=== PATIENT | female | born 1970 | race Caucasian/White ===

== ENCOUNTER 2018-08-24 14:30 | Observation (INO) | payer OTHER ==
[~2018-08-24] VITALS: Ht 170.2 cm; Wt 127.1 kg
[2018-08-24 18:42] LABS: BASOPHILS % 0.1 % (0.0-1.0); EOSINOPHILS % 0.1 % (0.0-6.0); HEMATOCRIT 35.9 % (34.2-44.1); HEMOGLOBIN 11.6 g/dL (12.0-16.0); LYMPHOCYTES # (AUTO) 2.5 (1.0-3.2); LYMPHOCYTES % 10.7 % (18.0-39.1); MEAN CORPUSCULAR HEMOGLOBIN 27.4 pg (28-32); MEAN CORPUSCULAR HGB CONC 32.3 g/dL (31-35); MEAN CORPUSCULAR VOLUME 84.9 fL (81-99); MONOCYTES # (AUTO) 0.7 (0.2-0.8); NEUTROPHILS # (AUTO) 19.5 (2.1-6.9); NEUTROPHILS % 85.5 % (38.7-80.0); PLATELET COUNT 286 x10e3/uL (140-360); RED BLOOD COUNT 4.23 x10e6/uL (3.6-5.1)
[2018-08-24 19:01] LABS: ALANINE AMINOTRANSFERASE 21 IU/L (0-55); ALBUMIN 3.9 g/dL (3.5-5.0); ALBUMIN/GLOBULIN RATIO 0.9 (0.8-2.0); ALKALINE PHOSPHATASE 86 IU/L (40-150); ANION GAP 15.4 mmol/L (8-16); BLOOD UREA NITROGEN 15 mg/dL (7-26); BUN/CREATININE RATIO 18 (6-25); CALCIUM 9.3 mg/dL (8.4-10.2); CARBON DIOXIDE 26 mmol/L (22-29); CHLORIDE 101 mmol/L (98-107); CREATININE, SERUM 0.84 mg/dL (0.57-1.11); EST GLOMERULAR FILTRATION RATE > 60 ML/MIN (60-); GLUCOSE 122 mg/dL (74-118); POTASSIUM 4.4 mmol/L (3.5-5.1); SODIUM 138 mmol/L (136-145)
[2018-08-24] MEDS ORDERED: DIATRIZOATE MEGL/DIATRIZOA SOD 30 ML BTL PO ONE (19:30)
[2018-08-24 21:17] LABS: BILIRUBIN,URINE NEGATIVE (NEGATIVE); CLARITY,URINE TURBID (CLEAR); COLOR,URINE YELLOW (YELLOW); KETONES,URINE NEGATIVE (NEGATIVE); LEUKOCYTE ESTERASE ,URINE NEGATIVE (NEGATIVE); NITRITE,URINE NEGATIVE (NEGATIVE); PROTEIN,URINE DIPSTICK NEGATIVE (NEGATIVE); URINE UROBILINOGEN 0.2 mg/dL (0.2 - 1)
[2018-08-24 21:28] LABS: AMORPHOUS SEDIMENT,URINE MANY (FEW); BACTERIA,URINE MANY /HPF
[2018-08-24] MEDS ORDERED: IOPAMIDOL 370 MG/ML 200 ML INFUS..BTL INJ ONE (22:00)
[2018-08-24] MEDS ORDERED: SODIUM CHLORIDE 0.9% 50ML 50 ML ONE (22:00)
[2018-08-24] MEDS ORDERED: SODIUM CHLORIDE 0.9% 1000ML 1,000 ML IV SCH (22:15)
--- NOTE | 2018-08-24 22:23 | Diagnostic Imaging Report ---
EXAM: CT Abdomen and Pelvis WITH contrast INDICATION: Lower abdominal pain, radiating to back. Emesis COMPARISON: None. TECHNIQUE: Abdomen and pelvis were scanned utilizing a multidetector helical scanner from the lung base to the pubic symphysis after administration of IV contrast. Coronal and sagittal reformations were obtained. Routine protocol was performed. Scan was performed when during portal venous phase. IV CONTRAST: 100 mL of Isovue-370 ORAL CONTRAST: Gastroview COMPLICATIONS: None RADIATION DOSE: Total DLP: 872.9 mGy*cm Estimated effective dose: (DLP x 0.015 x size factor) mSv CTDIvol has been reviewed. It is below the limits set by the Radiation Protocol Committee (RPC). FINDINGS: LINES and TUBES: None. LOWER THORAX: Unremarkable HEPATOBILIARY: No focal hepatic lesions. No biliary ductal dilation. GALLBLADDER: No radio-opaque stones or sludge. No wall thickening. SPLEEN: No splenomegaly. PANCREAS: No focal masses or ductal dilatation. ADRENALS: No adrenal nodules KIDNEYS/URETERS: A 0.6 x 1.9 cm structure in the right renal fossa likely represents a severely likely congenitally atrophic right kidney (coronal image 72). No hydronephrosis. No cystic or solid mass lesions. No stones. GI TRACT: Small hiatal hernia. No abnormal distention, wall thickening, or evidence of bowel obstruction. There are diverticula within the colon without evidence of diverticulitis. Appendix is normal. PELVIC ORGANS/BLADDER: A 4.9 x 4.4 cm structure in the posterior cul-de-sac (series 2 image 73) likely represents the right ovary. This appears asymmetrically prominent when compared to the left ovary which measures approximately 1.7 x 2.4 cm. LYMPH NODES: Minimally enlarged left common iliac 1.1 cm node (image 54) and right internal iliac 1.1 cm node (image 71). VESSELS: Unremarkable. PERITONEUM / RETROPERITONEUM: No free air or fluid. BONES: Unremarkable. SOFT TISSUES: Fat-containing 4.6 x 3.9 x 3.4 cm paraumbilical hernia with 1.7 cm neck. IMPRESSION: 1. Asymmetric prominence of the right ovary which may be secondary to an underlying lesion/cyst. Recommend further evaluation pelvic ultrasound. 2. Structure in the right renal fossa likely representing a severely likely congenitally atrophic right kidney. 3. Nonspecific minimally enlarged iliac lymph nodes. Signed by: DR. Mario Vasquez MD on 08/24/2018 10:19 PM
[2018-08-24] MEDS ORDERED: PIPER-TAZ 3.375 GM 50 ML IV ONE (22:30)
[2018-08-24] MEDS ORDERED: SODIUM CHLORIDE 0.9% 1000ML 1,000 ML IV ONE (22:30)
--- NOTE | 2018-08-25 00:38 | Diagnostic Imaging Report ---
EXAM: Transabdominal and Transvaginal Pelvic Ultrasound with Duplex INDICATION: Pelvic pain COMPARISON: Same day CT. TECHNIQUE: Grayscale transverse and sagittal transabdominal and transvaginal images were obtained of the pelvis. Transvaginal imaging was medically necessary to better evaluate the endometrium and the adnexa. The ovaries were examined with grayscale, color Doppler, and spectral waveform analysis. CLINICAL HISTORY: 48 year old A0; last menstrual period: 08/21/2017. FINDINGS: Uterus Orientation: Normal Size: 11 x 6.7 x 7.9 cm, mildly enlarged Mass: Left uterine intramural fibroid measuring 3.6 x 3.7 x 3.7 cm. Cervix: Normal Endometrium: Thickness: 2.6 cm, thickened. Appearance: Homogeneous echotexture without focal thickening. Small amount of free fluid in the endometrial cavity. Right ovary: Size: 6.6 x 3.2 x 4.6 cm Mass/Cyst: 3.9 x 2.2 x 4 cm complex cyst with crenulated margins, internal heterogeneity, and partial peripheral vascularity, likely corpus luteum. Vascularity: Normal venous and arterial color flow and waveforms. Left ovary: Size: 3.3 x 2.2 x 2.7 cm Mass/Cyst: None Vascularity: Normal venous and arterial color flow and waveforms. Adnexa: Normal Cul-de-sac: Mild free fluid IMPRESSION: 1. Arterial and venous flow is identified in both ovaries. Low likelihood of ovarian torsion. 2. Endometrial thickening, possibly clot given reported LMP of 4 days prior. Recommend correlation if patient currently menstruating and follow-up ultrasound in at least 4 weeks after completion of menstruation to document resolution. 3. Intramural 3.7 cm fibroid. 4. Right ovarian corpus luteum. Signed by: DR. Mario Vasquez MD on 08/25/2018 12:34 AM
[2018-08-25] MEDS ORDERED: ONDANSETRON HCL INJ 2 MG/ML VIAL IV PRN (01:30)
[2018-08-25] MEDS ORDERED: DEXTROSE 50% SYRINGE 50 ML IV PRN (01:30)
--- OUTSIDE RECORDS SUMMARY | 2018-08-25 01:44 | XMS REPORT ---
Author Author [facility] Address Unknown Phone Unavailable Care Team Providers Care Manager Culinary Name Role Phone Bryce DOTY Unavailable Unavailable Problems This patient has no known problems. Allergies, Adverse Reactions, Alerts This patient has no known allergies or adverse reactions. Medications This patient has no known medications. Results Test Description Test Time Test Comments Text Results Atomic Results Result Comments US TRANSVAGINAL 2018-08-25 00:27:00 [place] [address] Patient Name: NATALIE POTTER MR #: [id number] : 1970 Age/Sex: 48/F Req #: [id number] Adm Physician: Ordered by: JAIMIE SWANN MD Report #: [id number] Location: ER Room/Bed: Procedure: [id number] US/US TRANSVAGINAL Exam Date: Exam Time: REPORT STATUS: Signed EXAM: Transabdominal and Transvaginal Pelvic Ultrasound with Duplex INDICATION: Pelvic pain COMPARISON: Same day CT. TECHNIQUE: Grayscale transverse and sagittal transabdominal and transvaginal images were obtained of the pelvis. Transvaginal imaging was medically necessary to better evaluate the endometrium and the adnexa. The ovaries were examined with grayscale, color Doppler, and spectral waveform analysis. CLINICAL HISTORY: 48 year old A0; last menstrual period: 08/21/2017. FINDINGS: Uterus Orientation: Normal Size: 11 x 6.7 x 7.9 cm, mildly enlarged Mass: Left uterine intramural fibroid measuring 3.6 x 3.7 x 3.7 cm. Cervix: Normal Endometrium: Thickness: 2.6 cm, thickened. Appearance: Homogeneous echotexture without focal thickening. Small amount of free fluid in the endometrial cavity. Right ovary: Size: 6.6 x 3.2 x 4.6 cm Mass/Cyst: 3.9 x 2.2 x 4 cm complex cyst with crenulated margins, internal heterogeneity, and partial oscar pheral vascularity, likely corpus luteum. Vascularity: Normal venous and arterial color flow and waveforms. Left ovary: Size: 3.3 x 2.2 x 2.7 cm Mass/Cyst: None Vascularity: Normal venous and arterial color flow and waveforms. Adnexa: Normal Cul-de-sac: Mild free fluid IMPRESSION: 1. Arterial and venous flow is identified in both ovaries. Low likelihood of ovarian torsion. 2. Endometrial thickening, possibly clot given reported LMP of 4 days prior. Recommend correlation if patient currently menstruating and follow-up ultrasound in at least 4 weeks after completion of menstruation to document resolution. 3. Intramural 3.7 cm fibroid. 4. Right ovarian corpus luteum. Signed by: DR. Mario Larios MD on 08/25/2018 12:34 AM Dictated By: MARIO LARIOS MD Transcribed By: CHANI on 08/25/1833 COPY TO: JAIMIE SWANN MD CT ABDOMEN/PELVIS W 2018-08-24 22:05:00 [place] [address] Patient Name: NATALIE POTTER MR #: [id number] : 1970 Age/Sex: 48/F Req #: [id number] Adm Physician: Ordered by: NEHEMIAH PERALTA NP Report #: [id number] Location: ER Room/Bed: Procedure: [id number] CT/CT ABDOMEN/PELVIS W Exam Date: 08/24/18 Exam Time: 2144 REPORT STATUS: Signed EXAM: CT Abdomen and Pelvis WITH contrast INDICATI ON: Lower abdominal pain, radiating to back. Emesis COMPARISON: None. TECHNIQUE: Abdomen and pelvis were scanned utilizing a multidetector helical scanner from the lung base to the pubic symphysis after administration of IV contrast. Coronal and sagittal reformations were obtained. Routine protocol was performed. Scan was performed when during portal venous phase. IV CONTRAST: 100 mL of Isovue-370 ORAL CONTRAST: Gastroview COMPLICATIONS: None RADIATION DOSE: Total DLP: 872.9 mGy*cm Estimated effective dose: (DLP x 0.015 x size factor) mSv CTDIvol has been reviewed. It is below the limits set by the Radiation Protocol Committee (RPC). FINDINGS: LINES and TUBES: None. LOWER THORAX: Unremarkable HEPATOBILIARY: No focal hepatic lesions. No biliary ductal dilation. GALLBLADDER: No radio-opaque stones or sludge. No wall thickening. SPLEEN: No splenomegaly. PANCREAS: No focal masses or d uctal dilatation. ADRENALS: No adrenal nodules KIDNEYS/URETERS: A 0.6 x 1.9 cm structure in the right renal fossa likely represents a severely likely congenitally atrophic right kidney (coronal image 72). No hydronephrosis. No cystic or solid mass lesions. No stones. GI TRACT: Small hiatal hernia. No abnormal distention, wall thickening, or evidence of bowel obstruction. There are diverticula within the colon without evidence of diverticulitis. Appendix is normal. PELVIC ORGANS/BLADDER: A 4.9 x 4.4 cm structure in the posterior cul-de-sac (series 2 image 73) likely represents the right ovary. This appears asymmetrically prominent when compared to the left ovary which measures approximately 1.7 x 2.4 cm. LYMPH NODES: Minimally enlarged left common iliac 1.1 cm node (image 54) and right internal iliac 1.1 cm node (image 71). VESSELS: Unremarkable. PERITONEUM / RETROPERITONEUM: No free air or fluid. BONES: Unremarkable. SOFT TISS UES: Fat-containing 4.6 x 3.9 x 3.4 cm paraumbilical hernia with 1.7 cm neck. IMPRESSION: 1. Asymmetric prominence of the right ovary which may be secondary to an underlying lesion/cyst. Recommend further evaluation pelvic ultrasound. 2. Structure in the right renal fossa likely representing a severely likely congenitally atrophic right kidney. 3. Nonspecific minimally enlarged iliac lymph nodes. Signed by: DR. Mario Larios MD on 08/24/2018 10:19 PM Dictated By: MARIO LARIOS MD 18 Transcribed By: CHANI on 08/24/182218 COPY TO: NEHEMIAH PERALTA NP
--- NOTE | 2018-08-25 02:11 | NUR ---
PT ARRIVING TO UNIT VIA STRETCHER, NO DISTRESS NOTED, FAMILY AT SIDE
[2018-08-25 02:15] VITALS: BP 142/60
[2018-08-25] MEDS: SODIUM CHLORIDE 0.9% 1000ML 1,000 ML IV SCH ×3 (02:30→19:46)
--- NOTE | 2018-08-25 06:14 | NUR ---
PT RESTING IN BED WITH EYES CLOSED, NO DISTRESS NOTED, IV INFUSING PER ORDER, DAUGHTER AT BEDSIDE, CALL LIGHT IN REACH
--- NOTE | 2018-08-25 06:45 | NUR ---
rounded with night nurse, patient aware of change. Patient in no distress, call vásquez within reach.
[2018-08-25 07:16] LABS: BASOPHILS % 0.2 % (0.0-1.0); EOSINOPHILS # (AUTO) 0.1 (0.0-0.4); EOSINOPHILS % 0.5 % (0.0-6.0); HEMATOCRIT 28.5 % (34.2-44.1); HEMOGLOBIN 9.1 g/dL (12.0-16.0); LYMPHOCYTES # (AUTO) 3.1 (1.0-3.2); LYMPHOCYTES % 22.1 % (18.0-39.1); MEAN CORPUSCULAR HGB CONC 31.9 g/dL (31-35); MEAN CORPUSCULAR VOLUME 84.6 fL (81-99); MONOCYTES # (AUTO) 0.7 (0.2-0.8); MONOCYTES % 5.3 % (4.4-11.3); NEUTROPHILS # (AUTO) 9.8 (2.1-6.9); NEUTROPHILS % 71.5 % (38.7-80.0); PLATELET COUNT 227 x10e3/uL (140-360); RED BLOOD COUNT 3.37 x10e6/uL (3.6-5.1); RED CELL DISTRIBUTION WIDTH 15.1 % (11.7-14.4)
[2018-08-25 07:30] LABS: ALANINE AMINOTRANSFERASE 13 IU/L (0-55); ALBUMIN 2.7 g/dL (3.5-5.0); ALBUMIN/GLOBULIN RATIO 0.8 (0.8-2.0); ALKALINE PHOSPHATASE 68 IU/L (40-150); ANION GAP 13.7 mmol/L (8-16); BLOOD UREA NITROGEN 11 mg/dL (7-26); BUN/CREATININE RATIO 14 (6-25); CALCIUM 8.2 mg/dL (8.4-10.2); CARBON DIOXIDE 22 mmol/L (22-29); CHLORIDE 102 mmol/L (98-107); CREATININE, SERUM 0.78 mg/dL (0.57-1.11); EST GLOMERULAR FILTRATION RATE > 60 ML/MIN (60-); GLUCOSE 164 mg/dL (74-118); POTASSIUM 3.7 mmol/L (3.5-5.1); SODIUM 134 mmol/L (136-145)
[2018-08-25] MEDS: INSULIN REGULAR, HUMAN 100 UNIT/1 ML 3ML VIAL SQ SCH ×4 (07:30→21:00)
[2018-08-25 07:35] VITALS: BP 152/75
[2018-08-25 07:42] VITALS: BP 152/75
--- NOTE | 2018-08-25 09:34 | History and Physical ---
The patient is here for acute abdominal pain. HISTORY OF PRESENT ILLNESS: This is Mrs. Peterson November, 48-year-old female with a history of diabetes, who was in her state of health until about 6 o'clock this last evening. The patient was sitting and had a sharp abdominal pain, 10/10 intensity and was relentless and came into the emergency room with abdominal pain. The patient is currently admitted for abdominal pain and also leukocytosis. PAST MEDICAL HISTORY: Significant for diabetes mellitus. MEDICATIONS: She takes insulin glargine 40 units at nighttime and also metformin 500 mg 2 tablets once a day. She is also currently on with [facility] who supplies with the medications. SURGICAL HISTORY: Noncontributory. The patient has had fractures in the lower extremities; otherwise, noncontributory. SOCIAL HISTORY: No ETOH. No IV drug abuse. No history of smoking. REVIEW OF SYSTEMS: Negative for chest pain. No shortness of breath. Positive for nausea. No vomiting. No diarrhea. No constipation or rectal bleeding. Abdominal pain positive as mentioned. No radiation. No rectal bleeding. No diplopia and no blurry vision either. PHYSICAL EXAMINATION VITAL SIGNS: Temperature is 97.5, pulse of 90, blood pressure 154/89, respiration of 16. HEENT: Normocephalic and atraumatic. Pupils are reactive to light and accommodation. CVS: S1, S2 normal. Regular rate and rhythm. LUNGS: Clear to auscultation bilaterally. ABDOMEN: Tender in the suprapubic area and in the left lower quadrant too. Right lower quadrant is pretty normal. EXTREMITIES: No clubbing. No cyanosis. No edema. LABORATORY VALUES: Initial white count was 22.82, hemoglobin of 11.6, and hematocrit of 35.9. Today is 13.57 and hematocrit of 28.5. Chemistries; sodium of 138, potassium of 4.4, chloride of 101, BUN of 15, creatinine of 0.84. Glucose is 122, lactic acid 31 initially today is 17.0. ALT, AST, total bilirubin normal. Total protein of 8.2. The patient's urine showed urine culture was turbid, positive for blood and bacteria, many. LABORATORY MICROBIOLOGY: Blood cultures were pending and urine cultures pending. IMAGING STUDIES: Abdominal CT and pelvic CT showed kidney, ureters which were normal. No stones were mentioned. GI tract; small hiatal hernia. No abdominal distention. Pelvic organs 4.9 x 4.4. Structure in the posterior cul-de-sac likely present on the right ovary, appears asymmetric when compared to the left ovary which measures less lymph nodes, minimal enlarged left common iliac nodes, vessels are unremarkable. Bones are unremarkable. Soft tissue paraumbilical hernia; otherwise normal. ASSESSMENT AND PLAN 1. Abdominal pain, etiology unclear possibly could be a urinary stone which she expelled. 2. Leukocytosis, probably reactive. While count is down to 13,000 with Zosyn. We will resume Zosyn at this time until advised. 3. Increased lactic acid. Opiate is normal, could be serious. We will continue monitoring it. 4. Pelvic cyst. We will continue monitoring it. We might consult for it. At this point in time not required. Further recommendation per clinical course. We will continue monitoring her white count for tomorrow and if normal can be discharged home tomorrow. Further recommendation per clinical course. For her diabetes, we will restart her on medications and restart her on food. Job#: [id number] RADHA
--- NOTE | 2018-08-25 10:44 | NUR ---
Patient's daughter brought metformin and lantus from home for patient to continue taking. Patient states she is participating in a [facility] study for diabetes and per the study must take the medications provided by [facility]. Dr Voss is aware of the situation and per MD it is okay for patient to continue on these medications.
[2018-08-25] MEDS: ACETAMINOPHEN 325 MG TAB PO PRN ×2 (11:07→18:39)
[2018-08-25 11:20] VITALS: BP 133/69
[2018-08-25] MEDS: PIPER-TAZ 3.375 GM 50 ML IV SCH ×2 (11:42→17:50)
[2018-08-25 16:06] VITALS: BP 158/77
--- NOTE | 2018-08-25 18:55 | NUR ---
REPORT RECEIVED FROM OFF GOING NURSE, PT RESTING IN BED ALERT AND ORIENTED, NO DISTRESS NOTED, IV INFUSING PER ORDER, DENIES NEEDS, CALL LIGHT IN REACH, FAMILY AT BEDSIDE, INSTRUCTED TO CALL WITH NEEDS
[2018-08-25 20:00] VITALS: BP 165/78
[2018-08-26] VITALS: BP 147/74
[2018-08-26] MEDS: SODIUM CHLORIDE 0.9% 1000ML 1,000 ML IV SCH (01:55)
[2018-08-26 04:00] VITALS: BP 146/71
[2018-08-26 04:53] LABS: BASOPHILS % 0.3 % (0.0-1.0); EOSINOPHILS # (AUTO) 0.2 (0.0-0.4); EOSINOPHILS % 1.7 % (0.0-6.0); HEMATOCRIT 29.7 % (34.2-44.1); HEMOGLOBIN 9.4 g/dL (12.0-16.0); LYMPHOCYTES # (AUTO) 2.7 (1.0-3.2); LYMPHOCYTES % 25.4 % (18.0-39.1); MEAN CORPUSCULAR HEMOGLOBIN 26.9 pg (28-32); MEAN CORPUSCULAR HGB CONC 31.6 g/dL (31-35); MEAN CORPUSCULAR VOLUME 85.1 fL (81-99); MONOCYTES # (AUTO) 0.5 (0.2-0.8); MONOCYTES % 4.7 % (4.4-11.3); NEUTROPHILS # (AUTO) 7.2 (2.1-6.9); NEUTROPHILS % 67.5 % (38.7-80.0); PLATELET COUNT 238 x10e3/uL (140-360); RED BLOOD COUNT 3.49 x10e6/uL (3.6-5.1); RED CELL DISTRIBUTION WIDTH 14.8 % (11.7-14.4)
[2018-08-26 05:18] LABS: ANION GAP 10.8 mmol/L (8-16); BLOOD UREA NITROGEN 8 mg/dL (7-26); BUN/CREATININE RATIO 11 (6-25); CALCIUM 8.3 mg/dL (8.4-10.2); CARBON DIOXIDE 24 mmol/L (22-29); CHLORIDE 105 mmol/L (98-107); CREATININE, SERUM 0.73 mg/dL (0.57-1.11); EST GLOMERULAR FILTRATION RATE > 60 ML/MIN (60-); GLUCOSE 115 mg/dL (74-118); POTASSIUM 3.8 mmol/L (3.5-5.1); SODIUM 136 mmol/L (136-145)
[2018-08-26] MEDS: PIPER-TAZ 3.375 GM 50 ML IV SCH ×2 (05:28)
[2018-08-26] MEDS: ACETAMINOPHEN 325 MG TAB PO PRN (05:29)
--- NOTE | 2018-08-26 05:30 | NUR ---
PT RESTING IN BED ALERT AND ORIENTED, NO DISTRESS NOTED, IV INFUSING PER ORDER, PRN GIVEN FOR HEADACHE, CALL LIGHT IN REACH, INSTRUCTED TO CALL WITH NEEDS
--- NOTE | 2018-08-26 06:50 | NUR ---
rounded with reinforced concrete inspector nurse, patient resting quietly in bed and in no distress. call vásquez within reach.
[2018-08-26 07:20] VITALS: BP 143/75
[2018-08-26] MEDS: INSULIN REGULAR, HUMAN 100 UNIT/1 ML 3ML VIAL SQ SCH (07:30)
[2018-08-26 07:57] VITALS: BP 143/75
--- NOTE | 2018-08-26 08:42 | Progress Note ---
DATE: SUBJECTIVE: Patient is here for abdominal pain. Currently, the patient is complaining of pain, 2/10 like a sore muscle. Otherwise, pain is completely better. OBJECTIVE VITAL SIGNS: Temperature is 98.1, pulse of 88, respirations of 20, blood pressure is 146/71, pulse oximetry is 95%. HEENT: Normocephalic, atraumatic. Pupils are reactive to light and accommodation. No icterus present. CVS: S1, S2 normal. Regular rate and rhythm. ABDOMEN: Nontender, nondistended. EXTREMITIES: No clubbing, no cyanosis, and no edema. MICROBIOLOGY: No growth in blood cultures in the last 24 to 48 hours. LABORATORY VALUES: White count has come down to 10,000, hemoglobin is 9.4, hematocrit of 29.7, neutrophil count is 7.2. Chemistries: Sodium is 136, potassium of 3.8, carbon dioxide of 25, and glucose is running high at 177. Patient's urine culture is pending. IMAGING STUDIES: None new. Abdominal CT and transvaginal ultrasound showed pelvic cyst. ASSESSMENT AND PLAN 1. Abdominal pain. We will continue monitoring. The patient can be discharged home today. 2. Leukocytosis, unknown etiology. We will continue the patient on empiric Levaquin for about 5 days. 3. For the pelvic cyst, the patient has to go to her primary care physician and also have an appointment with her ASSOCIATE BRAND MANAGER to re-evaluate the cyst. Patient can be discharged home. Further recommendations as an outpatient and strict ER warnings also given to the patient. Job#: [id number]
[2018-08-26] MEDS ORDERED: LEVAQUIN500 MG PO (09:28)
--- NOTE | 2018-08-26 10:35 | NUR ---
discharge instructions given to patient, patient verbalized understanding. IV discontinued at this time, catheter in tact and small dressing applied. Patient alert and oriented, and in no distress. Patient to be wheeled out from floor to personal auto for mother to drive home.
== END 2018-08-26 10:46 | disposition home or self-care (01) ==
LOC: ER 14:30 → ERHOLD 08-25 01:42 → IMCU 08-25 02:13
PROVIDERS: ADMIT Family Medicine; ATTEND Family Medicine
DX: R10.31 Right lower quadrant pain (principal); R10.32 Left lower quadrant pain; R11.2 Nausea with vomiting, unspecified; D72.829 Elevated white blood cell count, unspecified; E11.9 Type 2 diabetes mellitus without complications; N83.11 Corpus luteum cyst of right ovary; D25.9 Leiomyoma of uterus, unspecified; Z91.040 Latex allergy status; Z79.4 Long term (current) use of insulin; Z82.49 Family history of ischemic heart disease and other diseases of the circulatory system
CPT/HCPCS: 36415 ×3; 74177; 76830; 76856; 80048; 80053 ×2; 81001; 82948 ×2; 83605 ×2; 83735; 84702; 85025 ×3; 87040; 93005; 96360; 96361 ×2; 99284; G0378 ×2; J1817; J2543 ×3; J7030 ×3; Q9967